=== PATIENT | female | born 1980 | race American Indian/Alaskan Native ===

== ENCOUNTER 2018-05-12 01:26 | Emergency (ER) | payer OTHER | END 2018-05-12 04:52 | disposition home or self-care (01) | LOC: ED 01:26 ==

== ENCOUNTER 2018-05-12 06:38 | Observation (INO) | payer MEDICAID, OTHER ==
--- NOTE | 2018-05-12 07:48 | ED PDOC ---
Arrival/HPI - General Chief Complaint: Medical Clearance Time Seen by Provider: 05/12/18 07:22 Historian: Patient - History of Present Illness Narrative History of Present Illness (Text): 05/12/18 07:30 38 year old homeless female, with no significant past medical history, who presents to the Emergency department complaining that she is " not being able to walk," noting symptoms have been present for only 1 day. Patient was reportedly seen and discharged last night. Patient states she is normally able to walk. Patient reportedly had x-rays that were negative last night. Patient does not have any other complaints at this time. Patient is a poor historian. Time/Duration: Other (Patient notes symptoms have been present for only 1 day) Symptom Onset: Sudden Symptom Course: Unchanged Activities at Onset: Light Past Medical History - Provider Review Nursing Documentation Reviewed: Yes - Infectious Disease Hx of Infectious Diseases: None - Psychiatric Hx Substance Use: No Family/Social History - Physician Review Nursing Documentation Reviewed: Yes Family/Social History: No Known Family HX Smoking Status: Smoker Currrent Status Unknown Hx Alcohol Use: Yes Hx Substance Use: No Allergies/Home Meds Allergies/Adverse Reactions: Allergies No Known Allergies Allergy (Verified 05/12/18 01:35) Review of Systems - Physician Review All systems were reviewed & negative as marked: Yes - Review of Systems Constitutional: Normal. absent: Fevers Neurological: Gait Changes (Patient notes she "cannot walk," but is normally able to). absent: Normal Physical Exam Vital Signs Reviewed: Yes Vital Signs Temp Pulse Resp BP Pulse Ox 05/12/18 07:03 97.8 F 88 18 131/77 99 Temperature: Afebrile Blood Pressure: Normal Pulse: Regular Respiratory Rate: Normal Appearance: Positive for: Well-Appearing, Non-Toxic, Comfortable Pain Distress: Mild Mental Status: Positive for: Alert and Oriented X 3 Medical Decision Making ED Course and Treatment: 05/12/18 07:30 Impression: 38 year old female who presents to the emergency department stating that she is "unable to walk," noting symptoms have been present for only 1 day. Differential Diagnosis included but are not limited to: ro cnetral vs spinal etiology Plan: -- Labs -- CT of head w/o contrast -- CT of lumbar spine w/o contrast -- Urinalysis -- Reassess and disposition Prior Visits: Notes and results from previous visits were reviewed. Patient presented on 05/12/18 for right leg pain. Patient was discharged in good condition, with prescriptions for Cyclobenzaprine HCl and Naprosyn. Progress Notes: 05/12/18 11:[address] Herrmann, who is custodial operations manager, and is aware of and agrees with plan. Dr. Herrmann requests MRI. 05/14/18 00:54 asa given - RAD Interpretation Narrative RAD Interpretations (Text): CT of head reviewed by radiologist, shows: Dictator : Vikash Lemons MD Report Date : 05/12/2018 10:47:34 IMPRESSION: No acute intracranial hemorrhage. Suspect minor chronic periventricular white matter ischemic changes Tiny nonspecific calcifications seen in the left temporal region of uncertain etiology. CT of lumbar spine reviewed by radiologist, shows: Dictator : Vikash Lemons MD Report Date : 05/12/2018 11:13:39 IMPRESSION: No acute fractures. Partial sacralization right-sided L5 vertebral body segment. Small amount of vacuum phenomena right SI joint Radiology Orders: 05/12/18 07:36 HEAD W/O CONTRAST [CT] Stat Transplant Registered Nurse: Radiologist - EKG Interpretation EKG Interpretation (Text): 05/12/18 EKG: Ordered, reviewed, and independently interpreted the EKG. Rate : 82 BPM Rhythm : NSR Interpretation : No ST-T wave changes. Interpreted by ED Physician: Yes Type: 12 lead EKG - Scribe Statement The provider has reviewed the documentation as recorded by the Scribe Radha Oconnell All medical record entries made by the Scribe were at my direction and pe rsonally dictated by me. I have reviewed the chart and agree that the record accurately reflects my personal performance of the history, physical exam, medical decision making, and the department course for this patient. I have also personally directed, reviewed, and agree with the discharge instructions and disposition. Disposition/Present on Arrival - Present on Arrival Any Indicators Present on Arrival: No History of DVT/PE: No History of Uncontrolled Diabetes: No Urinary Catheter: No History of Decub. Ulcer: No History Surgical Site Infection Following: None - Disposition Have Diagnosis and Disposition been Completed?: Yes Diagnosis: Lumbar radiculopathy, acute, Homeless Disposition: HOSPITALIZED Disposition Time: 15:00 Patient Problems: Current Active Problems Problem Status Onset Lumbar radiculopathy, acute Acute Condition: STABLE
[2018-05-12 08:34] LABS: BASO # 0.02 K/mm3 (0.0-2.0); BASO % 0.3 % (0.0-3.0); EOS % 0.1 % (1.5-5.0); HEMOGLOBIN 12.5 g/dL (12.0-16.0); LYMPH # 1.9 (1.2-3.4); LYMPH % 27.6 % (22.0-35.0); MEAN CELL VOLUME 82.8 fl (80.0-105.0); MEAN CORPUSCULAR HEMOGLOBIN 27.2 pg (25.0-35.0); MEAN CORPUSCULAR HGB CONC 32.9 g/dl (31.0-37.0); MEAN PLATELET VOLUME 10.6 fl (7.0-11.0); MONO # 0.3 (0.1-0.6); MONO % 3.8 % (1.0-6.0); RBC 4.59 10^6/uL (3.5-6.1); RED CELL DISTRIBUTION WIDTH 15.1 % (11.5-14.5)
[2018-05-12 08:41] LABS: INR 1.15; PARTIAL THROMBOPLASTIN TIME 35.6 Seconds (26.9-38.3)
[2018-05-12 10:02] LABS: ALB/GLOB RATIO 1.2 (1.1-1.8); ALBUMIN 4.6 g/dL (3.0-4.8); ALT/SGPT 6 U/L (7-56); AST/SGOT 37 U/L (14-36); BLOOD UREA NITROGEN 11 mg/dL (7-21); CALCIUM 9.9 mg/dL (8.4-10.5); GFR NON-AFRICAN AMERICAN > 60
[2018-05-12 10:19] LABS: CK-MB 0.8 ng/mL (0.0-3.6)
--- NOTE | 2018-05-12 10:51 | CT ---
Date of service: 05/12/2018 PROCEDURE: CT HEAD WITHOUT CONTRAST. HISTORY: Bilateral leg weakness. COMPARISON: None available. TECHNIQUE: Axial computed tomography images were obtained through the head/brain without intravenous contrast. Radiation dose: Total exam DLP = 1004.92 mGy-cm. This CT exam was performed using one or more of the following dose reduction techniques: Automated exposure control, adjustment of the mA and/or kV according to patient size, and/or use of iterative reconstruction technique. FINDINGS: HEMORRHAGE: No acute parenchymal, subarachnoid or extra-axial BRAIN: Suspect minor chronic periventricular white matter ischemic changes. There is a tiny calcifications seen the left temporal region nonspecific. VENTRICLES: No obstructive hydrocephalus. CALVARIUM: There are no acute calvarial fracture seen. PARANASAL SINUSES: Unremarkable as visualized. No significant inflammatory changes. MASTOID AIR CELLS: Unremarkable as visualized. No inflammatory changes. OTHER FINDINGS: None. IMPRESSION: No acute intracranial hemorrhage. Suspect minor chronic periventricular white matter ischemic changes Tiny nonspecific calcifications seen in the left temporal region of uncertain etiology.
--- NOTE | 2018-05-12 11:17 | CT ---
Date of service: 05/12/2018 PROCEDURE: CT Lumbar Spine without contrast HISTORY: Low back pain with difficulty ambulating. COMPARISON: No prior study available comparison TECHNIQUE: Axial computed tomography images were obtained of the lumbar spine without the use of intravenous contrast. Coronal and sagittal reformatted images were created and reviewed. Radiation dose: Total exam DLP = 441.51 mGy-cm. This CT exam was performed using one or more of the following dose reduction techniques: Automated exposure control, adjustment of the mA and/or kV according to patient size, and/or use of iterative reconstruction technique. FINDINGS: VERTEBRAE: No acute compression fractures nor retropulsed fragments. Vertebral bodies exhibit normal stature. Vertebral bodies and facets normally aligned. Disc space heights are relatively maintained. There are no disc herniations nor significant disc bulges. Minimal osteophyte formation seen along the right posterolateral L5-S1 disc space which encroaches slightly into the right exit foramen.. Partial sacralization right sided L5 vertebral body Note made of small amount of vacuum phenomena right SI joint. PARASPINAL SOFT TISSUES: Paraspinal soft tissues unremarkable OTHER FINDINGS: None IMPRESSION: No acute fractures. Partial sacralization right-sided L5 vertebral body segment. Small amount of vacuum phenomena right SI joint
[2018-05-12 14:55] LABS: PH,URINE 6.5 (4.7-8.0); URINE BILIRUBIN NEGATIVE (NEGATIVE); URINE BLOOD NEGATIVE (NEGATIVE); URINE GLUCOSE (UA) NEGATIVE (NEGATIVE); URINE LEUKOCYTE ESTERASE NEGATIVE Leu/uL (NEGATIVE); URINE PROTEIN NEGATIVE mg/dL (<30 mg/dL); URINE UROBILINOGEN 0.2 E.U./dL (<1 E.U./dL)
[2018-05-12 15:00] LABS: URINE APPEARANCE CLEAR (CLEAR); URINE COLOR LIGHT YELLOW (YELLOW)
[2018-05-12 15:11] LABS: BARBITURATES, UR NEGATIVE (NEGATIVE); BENZODIAZEPINES, UR NEGATIVE (NEGATIVE); OPIATES, UR NEGATIVE (NEGATIVE); PHENCYCLIDINE, UR NEGATIVE (NEGATIVE)
[2018-05-12 16:11] VITALS: BMI 26.6
[2018-05-12] MEDS ORDERED: Influenza Vaccine 60 mcg/0.5 mL SYR (4YR UP) IM ONE (16:12)
[2018-05-12] MEDS ORDERED: Pneumococcal 23-Valent Vaccine IM ONE (16:12)
[2018-05-12 16:48] LABS: BARBITURATES, UR NEGATIVE (NEGATIVE); BENZODIAZEPINES, UR NEGATIVE (NEGATIVE); OPIATES, UR NEGATIVE (NEGATIVE); PHENCYCLIDINE, UR NEGATIVE (NEGATIVE)
--- NOTE | 2018-05-12 17:12 | CP.PCM.HP ---
<Antonio Garcia - Last Filed: 05/12/18 17:30> History of Present Illness - History of Present Illness History of Present Illness: PGY-1 Medicine H&P for Dr. Aguilar CC: Right leg weakness HPI: Patient is a 38 year old homeless female from [facility] with no past medical history presenting with right leg weakness that started one day ago. She states that she was standing on the street when suddenly her right leg started to feel weak. She called the ambulance and was brought to the ED. She also admits to having thigh pain that is localized to her lateral right thigh. She describes the pain as burning and 8/10 in severity. She denies taking any medication for the pain and resting makes the pain better. Patient states that she travelled to [facility] from December 2017 until April 2018. She denies falling or trauma to her legs. She further denies any headaches, dizziness, changes in vision, shortness of breath, chest pain, abdominal pain, nausea, vomiting, diarrhea, or urinary symptoms. 12 point ROS reviewed and negative except mentioned in HPI. PMHx: denies PSHx: denies Allergies: NKDA Family Hx: denies Social Hx: denies tobacco, alcohol, or drug use. Patient is unemployed and ho meless at the moment. She states that she has 2 children that live with their father. Medications: denies PMD: none Present on Admission - Present on Admission Any Indicators Present on Admission: No History of DVT/PE: No History of Uncontrolled Diabetes: No Urinary Catheter: No Decubitus Ulcer Present: No Past Patient History - Infectious Disease Hx of Infectious Diseases: None - Past Social History Smoking Status: Never Smoked - CARDIAC Hx Peripheral Edema: Yes (+1 pitting r ft) Hx Peripheral Vascular Disease: Yes (feet cold to touch) - PULMONARY Hx Respiratory Disorders: No - NEUROLOGICAL Hx Neurological Disorder: Yes (feet cold to touch) - HEENT Hx HEENT Problems: No - RENAL Hx Chronic Kidney Disease: No - ENDOCRINE/METABOLIC Hx Endocrine Disorders: No - HEMATOLOGICAL/ONCOLOGICAL Hx Blood Disorders: No - INTEGUMENTARY Hx Dermatological Problems: Yes Other/Comment: r foot cold to touch +1 pitting edema, dry skin to foot/heal dry patch of skin to instep, 4th toe 3 small dry red wounds painful"sometimes", left foot cold to touch dry skin to foot/heal - MUSCULOSKELETAL/RHEUMATOLOGICAL Hx Falls: No - GASTROINTESTINAL Hx Gastrointestinal Disorders: No - GENITOURINARY/GYNECOLOGICAL Hx Genitourinary Disorders: No - PSYCHIATRIC Hx Substance Use: No (denies) - SURGICAL HISTORY Hx Surgeries: No Meds Allergies/Adverse Reactions: Allergies Allergy/AdvReac Type Severity Reaction Status Date / Time No Known Allergies Allergy Verified 05/12/18 01:35 Physical Exam - Constitutional Appears: Well, Non-toxic, No Acute Distress - Head Exam Head Exam: ATRAUMATIC, NORMAL INSPECTION - Eye Exam Eye Exam: EOMI, Normal appearance Pupil Exam: NORMAL ACCOMODATION, PERRL - ENT Exam ENT Exam: Mucous Membranes Moist - Neck Exam Neck exam: Positive for: Normal Inspection - Respiratory Exam Respiratory Exam: Clear to Auscultation Bilateral. absent: Rales, Rhonchi, Wheezes, Respiratory Distress - Cardiovascular Exam Cardiovascular Exam: REGULAR RHYTHM, +S1, +S2. absent: Gallop, Rubs, Systolic Murmur - GI/Abdominal Exam GI & Abdominal Exam: Normal Bowel Sounds, Soft. absent: Tenderness - Extremities Exam Extremities exam: Negative for: calf tenderness, pedal edema Additional comments: Tender on palpation on the right lateral thigh. No signs of cellulitis or infection. There is an ulcer on the right 3rd toe. No signs of infection or foul odor noted. - Back Exam Back exam: absent: CVA tenderness (L), CVA tenderness (R) - Neurological Exam Neurological exam: Alert, CN II-XII Intact, Oriented x3 Additional comments: Sensations are intact on all extremities. No drift noted on bilateral lower extremities. - Expanded Neurological Exam Expanded Neuro motor strength exam: Left Upper Extremity: 5, Right Upper Extremity: 5, Left Lower Extremity: 5, Right Lower Extremity: 4 - Psychiatric Exam Psychiatric exam: Normal Affect, Normal Mood - Skin Skin Exam: Dry, Normal Color, Warm Results - Vital Signs Recent Vital Signs: Last Vital Signs Temp 98.4 F 05/12/18 12:36 Pulse 86 05/12/18 14:30 Resp 20 05/12/18 15:41 BP 110/68 05/12/18 14:30 Pulse Ox 99 05/12/18 14:30 - Labs Result Diagrams: 05/12/18 08:00 05/12/18 09:30 Labs: Laboratory Results - last 24 hr 05/12/18 05/12/18 05/12/18 08:00 08:00 09:30 WBC 7.0 RBC 4.59 Hgb 12.5 Hct 38.0 MCV 82.8 MCH 27.2 MCHC 32.9 RDW 15.1 H Plt Count 360 MPV 10.6 Neut % (Auto) 68.2 H Lymph % (Auto) 27.6 [place] % (Auto) 3.8 Eos % (Auto) 0.1 L Baso % (Auto) 0.3 Lymph # (Auto) 1.9 [place] # (Auto) 0.3 Eos # (Auto) 0.0 Baso # (Auto) 0.02 Absolute Neuts (auto) 4.80 PT 13.0 H INR 1.15 APTT 35.6 Sodium 140 Potassium 4.5 Chloride 104 Carbon Dioxide 24 Anion Gap 16 BUN 11 Creatinine 0.7 Est GFR ( Amer) > 60 Est GFR (Non-Af Amer) > 60 Random Glucose 86 Calcium 9.9 Total Bilirubin 0.7 AST 37 H ALT 6 L Alkaline Phosphatase 66 Total Creatine Kinase 304 H CK-MB (CK-2) 0.8 CK-MB (CK-2) % Cancelled Total Protein 8.4 H Albumin 4.6 Globulin 3.8 Albumin/Globulin Ratio 1.2 Urine Color Urine Appearance Urine pH Ur Specific [place] Urine Protein Urine Glucose (UA) Urine Ketones Urine Blood Urine Nitrate Urine Bilirubin Urine Urobilinogen Ur Leukocyte Esterase Urine Opiates Screen Urine Methadone Screen Ur Barbiturates Screen Ur Phencyclidine Scrn Ur Amphetamines Screen U Benzodiazepines Scrn U Oth Cocaine Metabols U Cannabinoids Screen 05/12/18 05/12/18 05/12/18 14:35 14:35 16:14 WBC RBC Hgb Hct MCV MCH MCHC RDW Plt Count MPV Neut % (Auto) Lymph % (Auto) [place] % (Auto) Eos % (Auto) Baso % (Auto) Lymph # (Auto) [place] # (Auto) Eos # (Auto) Baso # (Auto) Absolute Neuts (auto) PT INR APTT Sodium Potassium Chloride Carbon Dioxide Anion Gap BUN Creatinine Est GFR ( Amer) Est GFR (Non-Af Amer) Random Glucose Calcium Total Bilirubin AST ALT Alkaline Phosphatase Total Creatine Kinase CK-MB (CK-2) CK-MB (CK-2) % Total Protein Albumin Globulin Albumin/Globulin Ratio Urine Color Light yellow Urine Appearance Clear Urine pH 6.5 Ur Specific [place] 1.010 Urine Protein Negative Urine Glucose (UA) Negative Urine Ketones 40 H Urine Blood Negative Urine Nitrate Negative Urine Bilirubin Negative Urine Urobilinogen 0.2 Ur Leukocyte Esterase Negative Urine Opiates Screen Negative Negative Urine Methadone Screen Negative Negative Ur Barbiturates Screen Negative Negative Ur Phencyclidine Scrn Negative Negative Ur Amphetamines Screen Negative Negative U Benzodiazepines Scrn Negative Negative U Oth Cocaine Metabols Negative Negative U Cannabinoids Screen Negative Negative Assessment & Plan - Assessment and Plan (Free Text) Assessment: Patient is a 38 year old female with no past medical history admitted for right leg weakness. Plan: Right leg weakness - Head CT: No acute intracranial hemorrhage. Suspect minor chronic periventricular white matter ischemic changes. - Lumbar spine CT: No acute fractures. Partial sacralization right-sided L5 vertebral body segment. - Brain MRI w/ and w/o contrast: pending - Neurology consulted, Dr. Herrmann - HbA1C, Lipid panel, TSH: pending - CK: 304 - UDS: negative - UA: negative Right foot ulcer: - Podiatry consulted, Dr. Mclaughlin - Wound care nurse consulted - Patient is afebrile and has no leukocytosis - Tylenol PRN for pain - HbA1c: pending Homelessness - ship worker consulted Prophylaxis: - Lovenox 40mg SC QD Patient seen and case discussed with attending, Dr. Lauren Garcia, PGY-1 <Papo Aguilar - Last Filed: 05/13/18 17:24> Results - Vital Signs Recent Vital Signs: Last Vital Signs Temp 98.4 F 05/13/18 15:30 Pulse 76 05/13/18 15:30 Resp 20 05/13/18 15:30 BP 104/69 05/13/18 15:30 Pulse Ox 99 05/13/18 15:30 - Labs Result Diagrams: 05/13/18 06:00 05/13/18 06:00 Labs: Laboratory Results - last 24 hr 05/13/18 05/13/18 05/13/18 06:00 06:00 06:00 WBC 5.7 RBC 4.39 Hgb 11.8 L Hct 36.5 MCV 83.1 MCH 26.9 MCHC 32.3 RDW 15.0 H Plt Count 312 MPV 10.1 Neut % (Auto) 59.2 Lymph % (Auto) 34.2 [place] % (Auto) 5.3 Eos % (Auto) 0.9 L Baso % (Auto) 0.4 Lymph # (Auto) 2.0 [place] # (Auto) 0.3 Eos # (Auto) 0.1 Baso # (Auto) 0.02 Absolute Neuts (auto) 3.39 Sodium 138 Potassium 4.3 Chloride 105 Carbon Dioxide 25 Anion Gap 13 BUN 11 Creatinine 0.8 Est GFR ( Amer) > 60 Est GFR (Non-Af Amer) > 60 Random Glucose 89 Hemoglobin A1c 5.6 Calcium 9.8 Total Bilirubin 0.8 AST 25 ALT < 6 L Alkaline Phosphatase 54 Total Protein 7.9 Albumin 4.2 Globulin 3.7 Albumin/Globulin Ratio 1.1 Triglycerides 57 Cholesterol 182 LDL Cholesterol Direct 104 HDL Cholesterol 45 TSH 3rd Generation 05/13/18 06:00 WBC RBC Hgb Hct MCV MCH MCHC RDW Plt Count MPV Neut % (Auto) Lymph % (Auto) [place] % (Auto) Eos % (Auto) Baso % (Auto) Lymph # (Auto) [place] # (Auto) Eos # (Auto) Baso # (Auto) Absolute Neuts (auto) Sodium Potassium Chloride Carbon Dioxide Anion Gap BUN Creatinine Est GFR ( Amer) Est GFR (Non-Af Amer) Random Glucose Hemoglobin A1c Calcium Total Bilirubin AST ALT Alkaline Phosphatase Total Protein Albumin Globulin Albumin/Globulin Ratio Triglycerides Cholesterol LDL Cholesterol Direct HDL Cholesterol TSH 3rd Generation 1.00 Attending/Attestation - Attestation I have personally seen and examined this patient.: Yes I have fully participated in the care of the patient.: Yes I have reviewed all pertinent clinical information: Yes Notes (Text): 38 y/o F with no PMH presented with RLE weakness with associated right hip pain. No other focal neuro deficit on exam CT head negative CT of lumbar sacral spine showed some degenerative disc disease Will get MRI of the brain, neuro on board Podiatry consulted for right foot ulcer PT eval
--- NOTE | 2018-05-12 17:18 | CARD ---
APPROVED REPORT Date of service: 05/12/2018 EKG Measurement Heart [id number] MI [id number] [id number] <Conclusion> Normal sinus rhythm with sinus arrhythmia Normal ECG
[2018-05-12] MEDS ORDERED: Gadodiamide 287 MG/ML VIAL (15ML) IV ONE (18:30)
[2018-05-13 06:47] LABS: BASO # 0.02 K/mm3 (0.0-2.0); BASO % 0.4 % (0.0-3.0); EOS # 0.1 (0.0-0.7); EOS % 0.9 % (1.5-5.0); HEMOGLOBIN 11.8 g/dL (12.0-16.0); LYMPH % 34.2 % (22.0-35.0); MEAN CELL VOLUME 83.1 fl (80.0-105.0); MEAN CORPUSCULAR HEMOGLOBIN 26.9 pg (25.0-35.0); MEAN CORPUSCULAR HGB CONC 32.3 g/dl (31.0-37.0); MEAN PLATELET VOLUME 10.1 fl (7.0-11.0); MONO # 0.3 (0.1-0.6); MONO % 5.3 % (1.0-6.0); RBC 4.39 10^6/uL (3.5-6.1); WHITE BLOOD COUNT 5.7 10^3/uL (4.5-11.0)
[2018-05-13 06:56] LABS: ALB/GLOB RATIO 1.1 (1.1-1.8); ALBUMIN 4.2 g/dL (3.0-4.8); ALT/SGPT < 6 U/L (7-56); AST/SGOT 25 U/L (14-36); BLOOD UREA NITROGEN 11 mg/dL (7-21); CALCIUM 9.8 mg/dL (8.4-10.5); GFR NON-AFRICAN AMERICAN > 60; HDL CHOLESTEROL 45 mg/dL (29-60)
[2018-05-13 07:02] LABS: LDL CHOLESTEROL 104 mg/dL (0-129)
--- NOTE | 2018-05-13 07:07 | CP.PCM.PN ---
<Antonio Garcia - Last Filed: 05/13/18 16:15> Subjective - Date & Time of Evaluation Date of Evaluation: 05/13/18 Time of Evaluation: 07:07 - Subjective Subjective: PGY-1 Medicine progress note for Dr. Aguilar Patient seen and examined at bedside. No acute events overnight. She states that her right leg weakness has improved since yesterday. She denies fevers, chills, shortness of breath, chest pain, or any other complaints at this time. Objective - Vital Signs/Intake and Output Vital Signs (last 24 hours): Temp Pulse Resp BP Pulse Ox 97.9 F 80 20 109/66 99 05/13/18 00:00 05/13/18 06:00 05/13/18 00:00 05/13/18 00:00 05/13/18 00:00 Intake and Output: 05/13/18 05/13/18 06:59 18:59 Intake Total 240 Balance 240 - Medications Medications: Current Medications Acetaminophen (Tylenol 325mg Tab) 650 mg PO Q6H PRN PRN Reason: Fever >100.4 F Enoxaparin Sodium (Lovenox) 40 mg SC DAILY JAMES; Protocol - Labs Labs: 05/13/18 06:00 05/13/18 06:00 PT 13.0 SECONDS (9.4-12.5) H 05/12/18 08:00 INR 1.15 05/12/18 08:00 APTT 35.6 Seconds (26.9-38.3) 05/12/18 08:00 - Additional Findings Additional findings: - Constitutional Appears: Well, Non-toxic, No Acute Distress - Head Exam Head Exam: ATRAUMATIC, NORMAL INSPECTION - Eye Exam Eye Exam: EOMI, Normal appearance Pupil Exam: NORMAL ACCOMODATION, PERRL - ENT Exam ENT Exam: Mucous Membranes Moist - Neck Exam Neck exam: Positive for: Normal Inspection - Respiratory Exam Respiratory Exam: Clear to Auscultation Bilateral. absent: Rales, Rhonchi, Wheezes, Respiratory Distress - Cardiovascular Exam Cardiovascular Exam: REGULAR RHYTHM, +S1, +S2. absent: Gallop, Rubs, Systolic Murmur - GI/Abdominal Exam GI & Abdominal Exam: Normal Bowel Sounds, Soft. absent: Tenderness - Extremities Exam Extremities exam: Negative for: calf tenderness, pedal edema Additional comments: There is an ulcer on the right 3rd toe. No signs of infection or foul odor noted. Dressing C/D/I. - Back Exam Back exam: absent: CVA tenderness (L), CVA tenderness (R) - Neurological Exam Neurological exam: Alert, CN II-XII Intact, Oriented x3 Additional comments: Sensations are intact on all extremities. No drift noted on bilateral lower extremities. - Expanded Neurological Exam Expanded Neuro motor strength exam: Left Upper Extremity: 5, Right Upper Extremity: 5, Left Lower Extremity: 5, Right Lower Extremity: 5 - Psychiatric Exam Psychiatric exam: Normal Affect, Normal Mood - Skin Skin Exam: Dry, Normal Color, Warm Assessment and Plan - Assessment and Plan (Free Text) Assessment: Patient is a 38 year old female with no past medical history admitted for right leg weakness. Plan: Right leg weakness - Head CT: No acute intracranial hemorrhage. Suspect minor chronic periventricular white matter ischemic changes. - Lumbar spine CT: No acute fractures. Partial sacralization right-sided L5 vertebral body segment. - Brain MRI w/ and w/o contrast: No acute abnormality - Thoracic spine MRI: pending - Neurology consulted, Dr. Herrmann - HbA1C, Lipid panel, TSH: WNL - UDS: negative - UA: negative Right foot ulcer: - Podiatry consulted, Dr. Mclaughlin - Right foot X-ray: no acute findings - Wound culture: pending - Wound care nurse consulted - Patient is afebrile and has no leukocytosis - Tylenol PRN for pain - HbA1c: 5.6 Homelessness - daycare worker consulted Prophylaxis: - Lovenox 40mg SC QD Patient seen and case discussed with attending, Dr. Lauren Garcia, PGY-1 <Papo Aguilar - Last Filed: 05/13/18 17:21> Objective - Vital Signs/Intake and Output Vital Signs (last 24 hours): Temp Pulse Resp BP Pulse Ox 98.4 F 76 20 104/69 99 05/13/18 15:30 05/13/18 15:30 05/13/18 15:30 05/13/18 15:30 05/13/18 15:30 Intake and Output: 05/13/18 05/13/18 06:59 18:59 Intake Total 240 Balance 240 - Medications Medications: Current Medications Acetaminophen (Tylenol 325mg Tab) 650 mg PO Q6H PRN PRN Reason: Fever >100.4 F Last Admin: 05/13/18 13:27 Dose: 650 mg Enoxaparin Sodium (Lovenox) 40 mg SC DAILY [facility]; Protocol Last Admin: 05/13/18 10:28 Dose: 40 mg Lactic Acid (Lac-Hydrin 12% Lotion (225 G)) 0 gm EXT BID JAMES Mupirocin (Bactroban Ointment) 1 gm TOP BID JAMES - Labs Labs: 05/13/18 06:00 05/13/18 06:00 PT 13.0 SECONDS (9.4-12.5) H 05/12/18 08:00 INR 1.15 05/12/18 08:00 APTT 35.6 Seconds (26.9-38.3) 05/12/18 08:00 Attending/Attestation - Attestation I have personally seen and examined this patient.: Yes I have fully participated in the care of the patient.: Yes I have reviewed all pertinent clinical information, including history, physical exam and plan: Yes Notes (Text): 38 y/o F with no PMH presented with RLE weakness with associated right hip pain. No other focal neuro deficit on exam CT head negative MRI of brain showed no acute pathology as per neurology CT of lumbar sacral spine showed some degenerative disc disease Symptoms improved today Neuro recommending MRI of the lumbosacral spine Podiatry evaluated the right foot ulcer, will f/u recommendations
--- NOTE | 2018-05-13 10:27 | CP.PCM.CON ---
History of Present Illness - History of Present Illness History of Present Illness: Neurology Consultation Note: Consult requested by Dr. Aguilar Ms. Rosales is a 38-year-old woman from [facility], with no significant past medical history, who presented to the ED stating that she was standing on the street when suddenly her right leg started to feel weak. The weakness is associated with thigh pain that is localized to her lateral right thigh. She describes the pain as burning and 8/[address] Lum[address] spine [address] showed partial sacralization of L5 vertebra on the right. MRI of the brain was normal. Today, the patient states that the pain and weakness is gone and she is able to ambulate normally. According to the patient, she has an infection of her foot on the right as well, which was cleaned by a physician and bandaged. Review of Systems - Constitutional Constitutional: As Per HPI - EENT Eyes: absent: As Per HPI, Blind Spots, Blurred Vision, Change in Vision, Decreased Night Vision, Diplopia, Discharge, Dry Eye, Exophthalmos, Floaters, Irritation, Itchy Eyes, Loss of Peripheral Vision, Pain, Photophobia, Requires Corrective Lenses, Sees Flashes, Spots in Vision, Tunnel Vision, Other Visual Disturbances, Loss of Vision, Other Ears: absent: As Per HPI, Decreased Hearing, Ear Discharge, Ear Pain, Tinnitus, Abnormal Hearing, Disequilibrium, Dizziness, Other Nose/Mouth/Throat: absent: As Per HPI, Epistaxis, Nasal Congestion, Nasal Discharge, Nasal Obstruction, Nasal Trauma, Nose Pain, Post Nasal Drip, Sinus Pain, Sinus Pressure, Bleeding Gums, Change in Voice, Dental Pain, Dry Mouth, Dysphagia, Halitosis, Hoarsness, Lip Swelling, Mouth Lesions, Mouth Pain, Odynophagia, Sore Throat, Throat Swelling, Tongue Swelling, Facial Pain, Neck Pain, Neck Mass, Other - Cardiovascular Cardiovascular: absent: As Per HPI, Acrocyanosis, Chest Pain, Chest Pain at Rest, Chest Pain with Activity, Claudication, Diaphoresis, Dyspnea, Dyspnea on Exertion, Edema, Irregular Heart Rhythm, Pain Radiating to Arm/Neck/Jaw, Leg Edema, Leg Ulcers, Lightheadedness, Orthopnea, Palpitations, Paroxysmal Nocturnal Dyspnea, Pedal Edema, Radiating Pain, Rapid Heart Rate, Slow Heart Rate, Syncope, Other - Respiratory Respiratory: absent: As Per HPI, Cough, Dyspnea, Hemoptysis, Dyspnea on E xertion, Wheezing, Snoring, Stridor, Pain on Inspiration, Chest Congestion, Excessive Mucous Production, Change in Mucous Color, Pain with Coughing, Other - Gastrointestinal Gastrointestinal: absent: As Per HPI, Abdominal Pain, Belching, Bloating, Change in Bowel Habits, Change in Stool Character, Coffee Ground Emesis, Constipation, Cramping, Diarrhea, Dyspepsia, Dysphagia, Early Satiety, Excessive Flatus, Fecal Incontinence, Heartburn, Hematemesis, Hematochezia, Loose Stools, Melena, Nausea, Odynophagia, Temesmus, Vomiting, Other - Musculoskeletal Musculoskeletal: absent: As Per HPI, Abnormal Gait, Arthralgias, Atrophy, Back Pain, Deformity, Joint Swelling, Limited Range of Motion, Loss of Height, Muscle Cramps, Muscle Weakness, Myalgias, Neck Pain, Numbness, Radiating Pain into Limb, Stiffness, Tingling, Other - Integumentary Integumentary: absent: As Per HPI, Acne, Alopecia, Bleeding Lesions, Change in Hair, Change in Nails, Change in Pigmentation, Changing Lesions, Dry Skin, Erythema, Furuncle, Hirsutism, Lesions, New Lesions, Non-Healing Lesions, Photosensitivity, Pruritus, Rash, Skin Pain, Skin Ulcer, Sores, Striae, Swelling, Unusual Bruising, Wounds, Jaundice, Other - Neurological Neurological: As Per HPI - Psychiatric Psychiatric: absent: As Per HPI, Abnormal Sleep Pattern, Anhedonia, Anxiety, Auditory Hallucinations, Behavioral Changes, Change in Appetite, Change in Libido, Confusion, Depression, Difficulty Concentrating, Hallucinations, Homicidal Ideation, Hopelessness, Irritability, Memory Loss, Mood Swings, Panic Attacks, Paranoia, Suicidal Ideation, Visual Hallucinations, Tactile Hallucinations, Other - Endocrine Endocrine: absent: As Per HPI, Change in Body Appearance, Change in Libido, Cold Intolorance, Deepening of Voice, Excessive Sweating, Fatigue, Flushing, Heat Intolorance, Increase in Ring/Shoe/Hat Size, Palpitations, Polydipsia, Polyphagia, Polyuria, Other - Hematologic/Lymphatic Hematologic: absent: As Per HPI, Easy Bleeding, Easy Bruising, Lymphadenopathy, Other Past Patient History - Infectious Disease Hx of Infectious Diseases: None - Past Social History Smoking Status: Never Smoked - CARDIAC Hx Peripheral Edema: Yes (+1 pitting r ft) Hx Peripheral Vascular Disease: Yes (feet cold to touch) - PULMONARY Hx Respiratory Disorders: No - NEUROLOGICAL Hx Neurological Disorder: Yes (feet cold to touch) - HEENT Hx HEENT Problems: No - RENAL Hx Chronic Kidney Disease: No - ENDOCRINE/METABOLIC Hx Endocrine Disorders: No - HEMATOLOGICAL/ONCOLOGICAL Hx Blood Disorders: No - INTEGUMENTARY Hx Dermatological Problems: Yes Other/Comment: r foot cold to touch +1 pitting edema, dry skin to foot/heal dry patch of skin to instep, 4th toe 3 small dry red wounds painful"sometimes", left foot cold to touch dry skin to foot/heal - MUSCULOSKELETAL/RHEUMATOLOGICAL Hx Falls: No - GASTROINTESTINAL Hx Gastrointestinal Disorders: No - GENITOURINARY/GYNECOLOGICAL Hx Genitourinary Disorders: No - PSYCHIATRIC Hx Substance Use: No (denies) - SURGICAL HISTORY Hx Surgeries: No Meds Allergies/Adverse Reactions: Allergies Allergy/AdvReac Type Severity Reaction Status Date / Time No Known Allergies Allergy Verified 05/12/18 01:35 - Medications Medications: Current Medications Acetaminophen (Tylenol 325mg Tab) 650 mg PO Q6H PRN PRN Reason: Fever >100.4 F Enoxaparin Sodium (Lovenox) 40 mg SC DAILY [facility]; Protocol Physical Exam - Constitutional Appears: Well - Head Exam Head Exam: ATRAUMATIC, NORMAL INSPECTION, NORMOCEPHALIC - Eye Exam Eye Exam: EOMI, Normal appearance, PERRL Pupil Exam: NORMAL ACCOMODATION, PERRL - ENT Exam ENT Exam: Mucous Membranes Moist, Normal Exam - Neck Exam Neck exam: Positive for: Normal Inspection - Respiratory Exam Respiratory Exam: Clear to Auscultation Bilateral, NORMAL BREATHING PATTERN - Cardiovascular Exam Cardiovascular Exam: REGULAR RHYTHM, +S1, +S2 - GI/Abdominal Exam GI & Abdominal Exam: Normal Bowel Sounds, Soft. absent: Tenderness - Extremities Exam Extremities exam: Positive for: normal inspection - Back Exam Back exam: NORMAL INSPECTION - Neurological Exam Neurological exam: Alert, CN II-XII Intact, Normal Gait, Oriented x3, Reflexes Normal Additional comments: No focal motor or sensory deficits noted. - Psychiatric Exam Psychiatric exam: Normal Affect, Normal Mood - Skin Skin Exam: Dry, Intact, Normal Color, Warm Results - Vital Signs Recent Vital Signs: Last Vital Signs Temp 98.3 F 05/13/18 08:35 Pulse 89 05/13/18 08:35 Resp 20 05/13/18 08:35 BP 113/68 05/13/18 08:35 Pulse Ox 98 05/13/18 08:35 - Labs Result Diagrams: 05/13/18 06:00 05/13/18 06:00 Labs: Laboratory Results - last 24 hr 05/12/18 05/12/18 05/12/18 09:30 14:35 14:35 WBC RBC Hgb Hct MCV MCH MCHC RDW Plt Count MPV Neut % (Auto) Lymph % (Auto) [place] % (Auto) Eos % (Auto) Baso % (Auto) Lymph # (Auto) [place] # (Auto) Eos # (Auto) Baso # (Auto) Absolute Neuts (auto) Sodium Potassium Chloride Carbon Dioxide Anion Gap BUN Creatinine Est GFR ( Amer) Est GFR (Non-Af Amer) Random Glucose Calcium Total Bilirubin AST ALT Alkaline Phosphatase CK-MB (CK-2) 0.8 CK-MB (CK-2) % Cancelled Total Protein Albumin Globulin Albumin/Globulin Ratio Triglycerides Cholesterol LDL Cholesterol Direct HDL Cholesterol TSH 3rd Generation Urine Color Light yellow Urine Appearance Clear Urine pH 6.5 Ur Specific [place] 1.010 Urine Protein Negative Urine Glucose (UA) Negative Urine Ketones 40 H Urine Blood Negative Urine Nitrate Negative Urine Bilirubin Negative Urine Urobilinogen 0.2 Ur Leukocyte Esterase Negative Urine Opiates Screen Negative Urine Methadone Screen Negative Ur Barbiturates Screen Negative Ur Phencyclidine Scrn Negative Ur Amphetamines Screen Negative U Benzodiazepines Scrn Negative U Oth Cocaine Metabols Negative U Cannabinoids Screen Negative 05/12/18 05/13/18 05/13/18 16:14 06:00 06:00 WBC 5.7 RBC 4.39 Hgb 11.8 L Hct 36.5 MCV 83.1 MCH 26.9 MCHC 32.3 RDW 15.0 H Plt Count 312 MPV 10.1 Neut % (Auto) 59.2 Lymph % (Auto) 34.2 [place] % (Auto) 5.3 Eos % (Auto) 0.9 L Baso % (Auto) 0.4 Lymph # (Auto) 2.0 [place] # (Auto) 0.3 Eos # (Auto) 0.1 Baso # (Auto) 0.02 Absolute Neuts (auto) 3.39 Sodium 138 Potassium 4.3 Chloride 105 Carbon Dioxide 25 Anion Gap 13 BUN 11 Creatinine 0.8 Est GFR ( Amer) > 60 Est GFR (Non-Af Amer) > 60 Random Glucose 89 Calcium 9.8 Total Bilirubin 0.8 AST 25 ALT < 6 L Alkaline Phosphatase 54 CK-MB (CK-2) CK-MB (CK-2) % Total Protein 7.9 Albumin 4.2 Globulin 3.7 Albumin/Globulin Ratio 1.1 Triglycerides 57 Cholesterol 182 LDL Cholesterol Direct 104 HDL Cholesterol 45 TSH 3rd Generation Urine Color Urine Appearance Urine pH Ur Specific [place] Urine Protein Urine Glucose (UA) Urine Ketones Urine Blood Urine Nitrate Urine Bilirubin Urine Urobilinogen Ur Leukocyte Esterase Urine Opiates Screen Negative Urine Methadone Screen Negative Ur Barbiturates Screen Negative Ur Phencyclidine Scrn Negative Ur Amphetamines Screen Negative U Benzodiazepines Scrn Negative U Oth Cocaine Metabols Negative U Cannabinoids Screen Negative 05/13/18 06:00 WBC RBC Hgb Hct MCV MCH MCHC RDW Plt Count MPV Neut % (Auto) Lymph % (Auto) [place] % (Auto) Eos % (Auto) Baso % (Auto) Lymph # (Auto) [place] # (Auto) Eos # (Auto) Baso # (Auto) Absolute Neuts (auto) Sodium Potassium Chloride Carbon Dioxide Anion Gap BUN Creatinine Est GFR ( Amer) Est GFR (Non-Af Amer) Random Glucose Calcium Total Bilirubin AST ALT Alkaline Phosphatase CK-MB (CK-2) CK-MB (CK-2) % Total Protein Albumin Globulin Albumin/Globulin Ratio Triglycerides Cholesterol LDL Cholesterol Direct HDL Cholesterol TSH 3rd Generation 1.00 Urine Color Urine Appearance Urine pH Ur Specific [place] Urine Protein Urine Glucose (UA) Urine Ketones Urine Blood Urine Nitrate Urine Bilirubin Urine Urobilinogen Ur Leukocyte Esterase Urine Opiates Screen Urine Methadone Screen Ur Barbiturates Screen Ur Phencyclidine Scrn Ur Amphetamines Screen U Benzodiazepines Scrn U Oth Cocaine Metabols U Cannabinoids Screen Assessment & Plan (1) Lumbar radiculopathy, acute Assessment and Plan: I recommend further evaluation with an MRI of the lumbar and thoracic spine. If it returns, or persists, treat pain with neurontin 300 mg TID. Thank you for this consultation. Status: Acute
[2018-05-13] MEDS: Enoxaparin 40 mg Syringe SC SCH (10:28)
--- NOTE | 2018-05-13 10:58 | CP.PCM.CON ---
<Alva Haskinser - Last Filed: 05/13/18 10:49> History of Present Illness - History of Present Illness History of Present Illness: Podiatry consult note for Dr. Mclaughlin: 38 year old homeless female from [facility] with no past medical history seen and evaluated at the bedside for right foot ulcerations and pain. She states that she just came back from [facility]. She states that she started to note ulcerations of her right 2nd toe a month ago. She states that the ulcer is painful. 5/10 on VAS scale. Patient states that the ulcers are not healing. She states that she used to wear open shoes in [facility]. Patient also complains of pain in the lateral side of her right ankle 3/10 on VAS scale. Increases with moving her ankle. She denies falling or trauma to her legs. She further denies any recent headaches, dizziness, changes in vision, shortness of breath, chest pain, abdominal pain, nausea, vomiting, diarrhea, or urinary symptoms. PMHx: Denies PSHx: Denies Allergies: NKDA Family Hx: Denies Social Hx: Denies tobacco, alcohol, or illicit drug use. Review of Systems - Review of Systems Review of Systems: As per HPI - Constitutional Constitutional: As Per HPI Past Patient History - Infectious Disease Hx of Infectious Diseases: None - Past Social History Smoking Status: Never Smoked - CARDIAC Hx Peripheral Edema: Yes (+1 pitting r ft) Hx Peripheral Vascular Disease: Yes (feet cold to touch) - PULMONARY Hx Respiratory Disorders: No - NEUROLOGICAL Hx Neurological Disorder: Yes (feet cold to touch) - HEENT Hx HEENT Problems: No - RENAL Hx Chronic Kidney Disease: No - ENDOCRINE/METABOLIC Hx Endocrine Disorders: No - HEMATOLOGICAL/ONCOLOGICAL Hx Blood Disorders: No - INTEGUMENTARY Hx Dermatological Problems: Yes Other/Comment: r foot cold to touch +1 pitting edema, dry skin to foot/heal dry patch of skin to instep, 4th toe 3 small dry red wounds painful"sometimes", left foot cold to touch dry skin to foot/heal - MUSCULOSKELETAL/RHEUMATOLOGICAL Hx Falls: No - GASTROINTESTINAL Hx Gastrointestinal Disorders: No - GENITOURINARY/GYNECOLOGICAL Hx Genitourinary Disorders: No - PSYCHIATRIC Hx Substance Use: No (denies) - SURGICAL HISTORY Hx Surgeries: No Meds Allergies/Adverse Reactions: Allergies Allergy/AdvReac Type Severity Reaction Status Date / Time No Known Allergies Allergy Verified 05/12/18 01:35 - Medications Medications: Current Medications Acetaminophen (Tylenol 325mg Tab) 650 mg PO Q6H PRN PRN Reason: Fever >100.4 F Enoxaparin Sodium (Lovenox) 40 mg SC DAILY [facility]; Protocol Last Admin: 05/13/18 10:28 Dose: 40 mg Mupirocin (Bactroban Ointment) 1 gm TOP BID [facility] Physical Exam - Constitutional Appears: Well, Non-toxic, No Acute Distress - Head Exam Head Exam: ATRAUMATIC, NORMOCEPHALIC - Extremities Exam Additional comments: B/L lower extremity focused exam: Vascular: DP/PT 2/4 b/l, Cap refill < 3 seconds to all digits, Temp gradient warm to cool from proximal to distal b/l, no edema appreciated b/l. Neuro: Gross and protective sensation are intact. Derm: 2 small superfcial ulcerations noted on the dorsunm of the right 2nd toe the proximal one is 0.4 cm X 0.3 cm X 0.1 cm. Minimal serous drainage. No malodor, No tracking, undermining or probe to bone. The distal one is 0.6 cm X 0.5 cm X 0.1 cm. No drainage. No malodor, No tracking, undermining or probe to bone . No clinical signs of active bacterial infection. Inter-digital macerations noted in the right 1st, 2nd and 3rd interspaces. hyperkeratotic lesions and skin breakage noted in the lateral side of the foot at the level of the styloid process and the back of the heel. toe nails distrophic and cdiscolored X 10. MSK: Muscle power 5/5 to all groups, Pain on palpating the lateral side of the right ankle. Pain on palpating the periulcerative areas of the right 2nd toe. - Neurological Exam Neurological exam: Alert, Oriented x3 - Psychiatric Exam Psychiatric exam: Normal Affect, Normal Mood Results - Vital Signs Recent Vital Signs: Last Vital Signs Temp 98.3 F 05/13/18 08:35 Pulse 89 05/13/18 08:35 Resp 20 05/13/18 08:35 BP 113/68 05/13/18 08:35 Pulse Ox 98 05/13/18 08:35 - Labs Result Diagrams: 05/13/18 06:00 05/13/18 06:00 Labs: Laboratory Results - last 24 hr 05/12/18 05/12/18 05/12/18 14:35 14:35 16:14 WBC RBC Hgb Hct MCV MCH MCHC RDW Plt Count MPV Neut % (Auto) Lymph % (Auto) [place] % (Auto) Eos % (Auto) Baso % (Auto) Lymph # (Auto) [place] # (Auto) Eos # (Auto) Baso # (Auto) Absolute Neuts (auto) Sodium Potassium Chloride Carbon Dioxide Anion Gap BUN Creatinine Est GFR ( Amer) Est GFR (Non-Af Amer) Random Glucose Calcium Total Bilirubin AST ALT Alkaline Phosphatase Total Protein Albumin Globulin Albumin/Globulin Ratio Triglycerides Cholesterol LDL Cholesterol Direct HDL Cholesterol TSH 3rd Generation Urine Color Light yellow Urine Appearance Clear Urine pH 6.5 Ur Specific [place] 1.010 Urine Protein Negative Urine Glucose (UA) Negative Urine Ketones 40 H Urine Blood Negative Urine Nitrate Negative Urine Bilirubin Negative Urine Urobilinogen 0.2 Ur Leukocyte Esterase Negative Urine Opiates Screen Negative Negative Urine Methadone Screen Negative Negative Ur Barbiturates Screen Negative Negative Ur Phencyclidine Scrn Negative Negative Ur Amphetamines Screen Negative Negative U Benzodiazepines Scrn Negative Negative U Oth Cocaine Metabols Negative Negative U Cannabinoids Screen Negative Negative 05/13/18 05/13/18 05/13/18 06:00 06:00 06:00 WBC 5.7 RBC 4.39 Hgb 11.8 L Hct 36.5 MCV 83.1 MCH 26.9 MCHC 32.3 RDW 15.0 H Plt Count 312 MPV 10.1 Neut % (Auto) 59.2 Lymph % (Auto) 34.2 [place] % (Auto) 5.3 Eos % (Auto) 0.9 L Baso % (Auto) 0.4 Lymph # (Auto) 2.0 [place] # (Auto) 0.3 Eos # (Auto) 0.1 Baso # (Auto) 0.02 Absolute Neuts (auto) 3.39 Sodium 138 Potassium 4.3 Chloride 105 Carbon Dioxide 25 Anion Gap 13 BUN 11 Creatinine 0.8 Est GFR ( Amer) > 60 Est GFR (Non-Af Amer) > 60 Random Glucose 89 Calcium 9.8 Total Bilirubin 0.8 AST 25 ALT < 6 L Alkaline Phosphatase 54 Total Protein 7.9 Albumin 4.2 Globulin 3.7 Albumin/Globulin Ratio 1.1 Triglycerides 57 Cholesterol 182 LDL Cholesterol Direct 104 HDL Cholesterol 45 TSH 3rd Generation 1.00 Urine Color Urine Appearance Urine pH Ur Specific [place] Urine Protein Urine Glucose (UA) Urine Ketones Urine Blood Urine Nitrate Urine Bilirubin Urine Urobilinogen Ur Leukocyte Esterase Urine Opiates Screen Urine Methadone Screen Ur Barbiturates Screen Ur Phencyclidine Scrn Ur Amphetamines Screen U Benzodiazepines Scrn U Oth Cocaine Metabols U Cannabinoids Screen Assessment & Plan - Assessment and Plan (Free Text) Assessment: 38 y/o F patient with no PMH seen and evaluated at the bedside for right foot ulcerations and pain. Plan: Patient seen and evaluated Discussed in detail with Dr. Mclaughlin Charts and vitals reviewed; Afebrile, No leukocytosis Right foot 3 views X-ray Ordered. Wound culture collected and sent to the lab. Ordered bactroban to be added to the dressing starting tomorrow. Applied betadine to the right foot inter digital spaces. Right foot ulcers cleaned with saline and dressed with betadine and DSD. Ordered ammonium lactate to be applied topically twice/day. Thank you for the consult. Patient wll continue to follow up the patient while in house. - Date & Time Date: 05/13/18 Time: 10:50 <Vinicius Mclaughlin - Last Filed: 05/13/18 13:10> Meds - Medications Medications: Current Medications Acetaminophen (Tylenol 325mg Tab) 650 mg PO Q6H PRN PRN Reason: Fever >100.4 F Enoxaparin Sodium (Lovenox) 40 mg SC DAILY [facility]; Protocol Last Admin: 05/13/18 10:28 Dose: 40 mg Lactic Acid (Lac-Hydrin 12% Lotion (225 G)) 0 gm EXT BID [facility] Mupirocin (Bactroban Ointment) 1 gm TOP BID [facility] Results - Vital Signs Recent Vital Signs: Last Vital Signs Temp 98.3 F 05/13/18 08:35 Pulse 89 05/13/18 08:35 Resp 20 05/13/18 08:35 BP 113/68 05/13/18 08:35 Pulse Ox 98 05/13/18 08:35 - Labs Result Diagrams: 05/13/18 06:00 05/13/18 06:00 Labs: Laboratory Results - last 24 hr 05/12/18 05/12/18 05/12/18 14:35 14:35 16:14 WBC RBC Hgb Hct MCV MCH MCHC RDW Plt Count MPV Neut % (Auto) Lymph % (Auto) [place] % (Auto) Eos % (Auto) Baso % (Auto) Lymph # (Auto) [place] # (Auto) Eos # (Auto) Baso # (Auto) Absolute Neuts (auto) Sodium Potassium Chloride Carbon Dioxide Anion Gap BUN Creatinine Est GFR ( Amer) Est GFR (Non-Af Amer) Random Glucose Hemoglobin A1c Calcium Total Bilirubin AST ALT Alkaline Phosphatase Total Protein Albumin Globulin Albumin/Globulin Ratio Triglycerides Cholesterol LDL Cholesterol Direct HDL Cholesterol TSH 3rd Generation Urine Color Light yellow Urine Appearance Clear Urine pH 6.5 Ur Specific [place] 1.010 Urine Protein Negative Urine Glucose (UA) Negative Urine Ketones 40 H Urine Blood Negative Urine Nitrate Negative Urine Bilirubin Negative Urine Urobilinogen 0.2 Ur Leukocyte Esterase Negative Urine Opiates Screen Negative Negative Urine Methadone Screen Negative Negative Ur Barbiturates Screen Negative Negative Ur Phencyclidine Scrn Negative Negative Ur Amphetamines Screen Negative Negative U Benzodiazepines Scrn Negative Negative U Oth Cocaine Metabols Negative Negative U Cannabinoids Screen Negative Negative 05/13/18 05/13/18 05/13/18 06:00 06:00 06:00 WBC 5.7 RBC 4.39 Hgb 11.8 L Hct 36.5 MCV 83.1 MCH 26.9 MCHC 32.3 RDW 15.0 H Plt Count 312 MPV 10.1 Neut % (Auto) 59.2 Lymph % (Auto) 34.2 [place] % (Auto) 5.3 Eos % (Auto) 0.9 L Baso % (Auto) 0.4 Lymph # (Auto) 2.0 [place] # (Auto) 0.3 Eos # (Auto) 0.1 Baso # (Auto) 0.02 Absolute Neuts (auto) 3.39 Sodium 138 Potassium 4.3 Chloride 105 Carbon Dioxide 25 Anion Gap 13 BUN 11 Creatinine 0.8 Est GFR ( Amer) > 60 Est GFR (Non-Af Amer) > 60 Random Glucose 89 Hemoglobin A1c 5.6 Calcium 9.8 Total Bilirubin 0.8 AST 25 ALT < 6 L Alkaline Phosphatase 54 Total Protein 7.9 Albumin 4.2 Globulin 3.7 Albumin/Globulin Ratio 1.1 Triglycerides 57 Cholesterol 182 LDL Cholesterol Direct 104 HDL Cholesterol 45 TSH 3rd Generation Urine Color Urine Appearance Urine pH Ur Specific [place] Urine Protein Urine Glucose (UA) Urine Ketones Urine Blood Urine Nitrate Urine Bilirubin Urine Urobilinogen Ur Leukocyte Esterase Urine Opiates Screen Urine Methadone Screen Ur Barbiturates Screen Ur Phencyclidine Scrn Ur Amphetamines Screen U Benzodiazepines Scrn U Oth Cocaine Metabols U Cannabinoids Screen 05/13/18 06:00 WBC RBC Hgb Hct MCV MCH MCHC RDW Plt Count MPV Neut % (Auto) Lymph % (Auto) [place] % (Auto) Eos % (Auto) Baso % (Auto) Lymph # (Auto) [place] # (Auto) Eos # (Auto) Baso # (Auto) Absolute Neuts (auto) Sodium Potassium Chloride Carbon Dioxide Anion Gap BUN Creatinine Est GFR ( Amer) Est GFR (Non-Af Amer) Random Glucose Hemoglobin A1c Calcium Total Bilirubin AST ALT Alkaline Phosphatase Total Protein Albumin Globulin Albumin/Globulin Ratio Triglycerides Cholesterol LDL Cholesterol Direct HDL Cholesterol TSH 3rd Generation 1.00 Urine Color Urine Appearance Urine pH Ur Specific [place] Urine Protein Urine Glucose (UA) Urine Ketones Urine Blood Urine Nitrate Urine Bilirubin Urine Urobilinogen Ur Leukocyte Esterase Urine Opiates Screen Urine Methadone Screen Ur Barbiturates Screen Ur Phencyclidine Scrn Ur Amphetamines Screen U Benzodiazepines Scrn U Oth Cocaine Metabols U Cannabinoids Screen Attending/Attestation - Attestation I have personally seen and examined this patient.: Yes I have fully participated in the care of the patient.: Yes I have reviewed all pertinent clinical information: Yes
--- NOTE | 2018-05-13 12:00 | MRI ---
Date of service: 05/12/2018 PROCEDURE: MRI BRAIN WITH AND WITHOUT CONTRAST HISTORY: Right leg weakness COMPARISON: CT head without contrast from 05/12/2018. TECHNIQUE: Multiplanar, multisequence MR images of the brain were obtained with and without intravenous contrast enhancement. 15 cc Omniscan was injected intravenously. FINDINGS: HEMORRHAGE: None DWI: No evidence of an acute or early subacute infarction. BRAIN PARENCHYMA: There are few scattered T2/FLAIR hyperintense foci in the the supratentorial subcortical white matter. There is no mass, mass effect or abnormal extra-axial fluid collection. There is no territorial infarction. There is a partially empty sella, otherwise the midline sagittal structures are normal. ENHANCEMENT: No abnormal intracranial enhancement. VENTRICLES: The ventricles are normal in size, shape and configuration. CRANIUM: There is normal bone marrow signal pattern. ORBITS: Grossly unremarkable. PARANASAL SINUSES/MASTOIDS: Predominantly clear. VASCULAR SYSTEM: There are normal signal voids in the larger intracranial arteries. OTHER FINDINGS: None . IMPRESSION: No acute intracranial abnormality. Minimal supratentorial white matter changes are strictly nonspecific. The differential considerations include migraine headache effect, gliosis, vasculitis, Lyme disease, premature early chronic microangiopathic changes and demyelinating disease including multiple sclerosis. Clinical follow-up is advised.
--- NOTE | 2018-05-13 12:06 | RAD ---
Date of service: 05/13/2018 PROCEDURE: Right Foot Radiographs. HISTORY: R 2nd toe ulcer COMPARISON: None. FINDINGS: BONES: Normal. No fracture. JOINTS: Normal. SOFT TISSUES: Normal. OTHER FINDINGS: None. IMPRESSION: Normal right foot radiographs.
--- NOTE | 2018-05-13 18:50 | MRI ---
Date of service: 05/13/2018 PROCEDURE: MRI of the thoracic spine dated 05/13/2018 HISTORY: Right leg weakness. COMPARISON: Correlation made with CT scan lumbar spine 05/12/2018 TECHNIQUE: Multiecho multiplanar sequences were performed through the thoracic spine without the use of intravenous contrast. FINDINGS: ALIGNMENT: Normal thoracic spinal alignment. Normal thoracic kyphosis. VERTEBRA: Vertebral body height are preserved. MARROW: Marrow signal unremarkable. PARASPINAL SOFT TISSUES: Unremarkable. CORD: Unremarkable thoracic cord. No volume loss, signal abnormality or syrinx. DISCS: No disc herniation or significant disc bulges are identified in the thoracic or upper lumbar region. No evidence of spinal, spinal canal stenosis, or neuroforaminal narrowing.. Note is made however of a small central and bilateral disc protrusion at the C5-C6 level which does minimally indent the ventral surface of the spinal cord. OTHER FINDINGS: None. IMPRESSION: No evidence of compression fractures no retropulsed fragments... No evidence of significant n disc herniations seen in the thoracic spine.. No evidence of central canal nor foraminal stenosis. No definitive abnormal signal changes seen within the visualized cervical or thoracic spinal cord. There is a small focal central and bilateral disc protrusion at the C5-C6 level which minimally indents the ventral surface of the spinal cord.
[2018-05-13] MEDS: Ammonium Lactate 12% Lotion (225 g) EXT SCH (19:48)
[2018-05-13] MEDS: Mupirocin 2% Ointment 15 GM TUBE TOP SCH (19:48)
[2018-05-14 06:43] LABS: BASO # 0.03 K/mm3 (0.0-2.0); BASO % 0.7 % (0.0-3.0); EOS # 0.1 (0.0-0.7); EOS % 1.5 % (1.5-5.0); HEMOGLOBIN 11.9 g/dL (12.0-16.0); LYMPH # 2.4 (1.2-3.4); LYMPH % 52.8 % (22.0-35.0); MEAN CELL VOLUME 83.2 fl (80.0-105.0); MEAN CORPUSCULAR HEMOGLOBIN 26.7 pg (25.0-35.0); MEAN CORPUSCULAR HGB CONC 32.1 g/dl (31.0-37.0); MEAN PLATELET VOLUME 10.2 fl (7.0-11.0); MONO # 0.3 (0.1-0.6); MONO % 6.1 % (1.0-6.0); RBC 4.46 10^6/uL (3.5-6.1); RED CELL DISTRIBUTION WIDTH 15.2 % (11.5-14.5); WHITE BLOOD COUNT 4.6 10^3/uL (4.5-11.0)
[2018-05-14 06:50] LABS: ALB/GLOB RATIO 1.2 (1.1-1.8); ALBUMIN 4.1 g/dL (3.0-4.8); AST/SGOT 23 U/L (14-36); BLOOD UREA NITROGEN 9 mg/dL (7-21); CALCIUM 9.7 mg/dL (8.4-10.5); GFR NON-AFRICAN AMERICAN > 60
--- NOTE | 2018-05-14 07:17 | CP.PCM.PN ---
Subjective - Date & Time of Evaluation Date of Evaluation: 05/14/18 Time of Evaluation: 07:17 Objective - Vital Signs/Intake and Output Vital Signs (last 24 hours): Temp Pulse Resp BP Pulse Ox 98 F 65 20 103/72 100 05/13/18 22:00 05/14/18 06:00 05/13/18 22:00 05/13/18 22:00 05/13/18 22:00 Intake and Output: 05/14/18 05/14/18 06:59 18:59 Intake Total 840 Balance 840 - Medications Medications: Current Medications Acetaminophen (Tylenol 325mg Tab) 650 mg PO Q6H PRN PRN Reason: Fever >100.4 F Last Admin: 05/13/18 13:27 Dose: 650 mg Enoxaparin Sodium (Lovenox) 40 mg SC DAILY [facility]; Protocol Last Admin: 05/13/18 10:28 Dose: 40 mg Lactic Acid (Lac-Hydrin 12% Lotion (225 G)) 0 gm EXT BID [facility] Last Admin: 05/13/18 19:48 Dose: 1 cre Mupirocin (Bactroban Ointment) 1 gm TOP BID [facility] Last Admin: 05/13/18 19:48 Dose: Not Given - Labs Labs: 05/14/18 06:00 05/14/18 06:00 PT 13.0 SECONDS (9.4-12.5) H 05/12/18 08:00 INR 1.15 05/12/18 08:00 APTT 35.6 Seconds (26.9-38.3) 05/12/18 08:00
[2018-05-14 07:20] LABS: ALT/SGPT < 6 U/L (7-56)
[2018-05-14 09:40] VITALS: BP 95/58; RESP 18; TEMP 98.4; O2SAT 98
[2018-05-14] MEDS: Mupirocin 2% Ointment 15 GM TUBE TOP SCH (10:43)
[2018-05-14] MEDS: Ammonium Lactate 12% Lotion (225 g) EXT SCH (10:43)
[2018-05-14] MEDS: Enoxaparin 40 mg Syringe SC SCH (10:43)
[2018-05-14 13:53] VITALS: PULSE 69
--- NOTE | 2018-05-14 14:01 | CP.PCM.PN ---
Subjective - Date & Time of Evaluation Date of Evaluation: 05/14/18 Time of Evaluation: 13:58 - Subjective Subjective: Podiatry consult note for Dr. Boo: 38 year old female patient seen and evaluated at the bedside for right foot ulcerations and pain. Patient states that she feels only mild pain when touching the ulcer site. She further denies any ovenight shortness of breath, chest pain, abdominal pain, nausea, vomiting, diarrhea, or urinary symptoms. She denies any other pedal comlaint at this time. Objective - Vital Signs/Intake and Output Vital Signs (last 24 hours): Temp Pulse Resp BP Pulse Ox 98.4 F 69 18 95/58 L 98 05/14/18 06:00 05/14/18 10:00 05/14/18 06:00 05/14/18 06:00 05/14/18 06:00 Intake and Output: 05/14/18 05/14/18 06:59 18:59 Intake Total 840 Balance 840 - Medications Medications: Current Medications Acetaminophen (Tylenol 325mg Tab) 650 mg PO Q6H PRN PRN Reason: Fever >100.4 F Last Admin: 05/13/18 13:27 Dose: 650 mg Enoxaparin Sodium (Lovenox) 40 mg SC DAILY [facility]; Protocol Last Admin: 05/14/18 10:43 Dose: 40 mg Lactic Acid (Lac-Hydrin 12% Lotion (225 G)) 0 gm EXT BID [facility] Last Admin: 05/14/18 10:43 Dose: 1 cre Mupirocin (Bactroban Ointment) 1 gm TOP BID [facility] Last Admin: 05/14/18 10:43 Dose: 1 applic - Labs Labs: 05/14/18 06:00 05/14/18 06:00 PT 13.0 SECONDS (9.4-12.5) H 05/12/18 08:00 INR 1.15 05/12/18 08:00 APTT 35.6 Seconds (26.9-38.3) 05/12/18 08:00 - Constitutional Appears: Well, Non-toxic, No Acute Distress - Head Exam Head Exam: ATRAUMATIC, NORMOCEPHALIC - Extremities Exam Additional comments: B/L lower extremity focused exam: Vascular: DP/PT 2/4 b/l, Cap refill < 3 seconds to all digits, Temp gradient warm to cool from proximal to distal b/l, no edema appreciated b/l. Neuro: Gross and protective sensation are intact. Derm: 2 small superfcial ulcerations noted on the dorsunm of the right 2nd toe the proximal one is 0.4 cm X 0.3 cm X 0.1 cm. Minimal serous drainage. No malodor, No tracking, undermining or probe to bone. The distal one is 0.6 cm X 0.5 cm X 0.1 cm. No drainage. No malodor, No tracking, undermining or probe to bone . No clinical signs of active bacterial infection. Inter-digital macerations noted in the right 1st, 2nd and 3rd interspaces. hyperkeratotic lesions and skin breakage noted in the lateral side of the foot at the level of the styloid process and the back of the heel. toe nails distrophic and cdiscolored X 10. MSK: Muscle power 5/5 to all groups, Pain on palpating the lateral side of the right ankle. Pain on palpating the periulcerative areas of the right 2nd toe. - Neurological Exam Neurological Exam: Alert, Awake, Oriented x3 - Psychiatric Exam Psychiatric exam: Normal Affect, Normal Mood Assessment and Plan - Assessment and Plan (Free Text) Assessment: 38 y/o F patient seen and evaluated at the bedside for right foot ulcerations and pain. Plan: Patient seen and evaluated Discussed in detail with Dr. Boo Charts and vitals reviewed; Afebrile, No leukocytosis Right foot 3 views X-ray: Normal radiograph. Wound culture: Gram positive cocci. Right foot ulcers dressed with bactroban and DSD. Ordered ammonium lactate to be applied topically twice/day. Ordered lotraisone cream o be applied topically twice/day. Ordered surgical shoe to the right foot. Patient to ambulate in the surgical shoe. Thank you for the consult. Patient will continue to follow up the patient while in house.
--- NOTE | 2018-05-14 17:45 | CP.PCM.DIS ---
Provider - Provider Date of Admission: 05/12/18 11:27 Attending physician: Papo Aguilar MD Consults: 05/12/18 16:12 Nursing Referral for Wound Care Routine Comment: right foot 4th toe Physician Instructions: Reason For Exam: assess 05/12/18 16:52 Neurology Consult Routine Comment: Consulting Provider: Warren Herrmann Consulting Physician: Warren Herrmann Reason for Consult: Right leg weakness 05/12/18 16:53 Podiatry Consult Routine Comment: Consulting Provider: Vinicius Mclaughlin Consulting Physician: Vinicius Mclaughlin Reason for Consult: Ulcer on right foot 05/12/18 16:54 Documentation Billing Clerk [Case Management Referral] Routine Comment: Physician Instructions: Reason For Exam: Patient is homeless with 2 children Reason for Referral: Discharge Planning Time Spent in preparation of Discharge (in minutes): 45 Diagnosis - Discharge Diagnosis (1) Right leg weakness Status: Resolved (2) Toe ulcer Status: Resolved (3) Homeless Status: Chronic Hospital Course - Lab Results Lab Results: Micro Results 05/13/18 11:00 Foot - Right Wound Culture - Preliminary Gram Positive Cocci Most Recent Lab Values WBC 4.6 10^3/uL (4.5-11.0) 05/14/18 06:00 RBC 4.46 10^6/uL (3.5-6.1) 05/14/18 06:00 Hgb 11.9 g/dL (12.0-16.0) L 05/14/18 06:00 Hct 37.1 % (36.0-48.0) 05/14/18 06:00 MCV 83.2 fl (80.0-105.0) 05/14/18 06:00 MCH 26.7 pg (25.0-35.0) 05/14/18 06:00 MCHC 32.1 g/dl (31.0-37.0) 05/14/18 06:00 RDW 15.2 % (11.5-14.5) H 05/14/18 06:00 Plt Count 325 10^3/uL (120.0-450.0) 05/14/18 06:00 MPV 10.2 fl (7.0-11.0) 05/14/18 06:00 Neut % (Auto) 38.9 % (50.0-68.0) L 05/14/18 06:00 Lymph % (Auto) 52.8 % (22.0-35.0) H 05/14/18 06:00 [place] % (Auto) 6.1 % (1.0-6.0) H 05/14/18 06:00 Eos % (Auto) 1.5 % (1.5-5.0) 05/14/18 06:00 Baso % (Auto) 0.7 % (0.0-3.0) 05/14/18 06:00 Lymph # (Auto) 2.4 (1.2-3.4) 05/14/18 06:00 [place] # (Auto) 0.3 (0.1-0.6) 05/14/18 06:00 Eos # (Auto) 0.1 (0.0-0.7) 05/14/18 06:00 Baso # (Auto) 0.03 K/mm3 (0.0-2.0) 05/14/18 06:00 Absolute Neuts (auto) 1.78 (1.4-6.5) 05/14/18 06:00 PT 13.0 SECONDS (9.4-12.5) H 05/12/18 08:00 INR 1.15 05/12/18 08:00 APTT 35.6 Seconds (26.9-38.3) 05/12/18 08:00 Sodium 139 mmol/L (132-148) 05/14/18 06:00 Potassium 4.2 mmol/L (3.6-5.0) 05/14/18 06:00 Chloride 105 mmol/L (98-107) 05/14/18 06:00 Carbon Dioxide 27 mmol/L (21-33) 05/14/18 06:00 Anion Gap 12 (10-20) 05/14/18 06:00 BUN 9 mg/dL (7-21) 05/14/18 06:00 Creatinine 0.8 mg/dl (0.7-1.2) 05/14/18 06:00 Est GFR ( Amer) > 60 05/14/18 06:00 Est GFR (Non-Af Amer) > 60 05/14/18 06:00 Random Glucose 93 mg/dL (70-110) 05/14/18 06:00 Hemoglobin A1c 5.6 % (4.2-6.5) 05/13/18 06:00 Calcium 9.7 mg/dL (8.4-10.5) 05/14/18 06:00 Total Bilirubin 0.5 mg/dL (0.2-1.3) 05/14/18 06:00 AST 23 U/L (14-36) 05/14/18 06:00 ALT < 6 U/L (7-56) L 05/14/18 06:00 Alkaline Phosphatase 58 U/L (38-126) 05/14/18 06:00 Total Creatine Kinase 304 U/L (35-230) H 05/12/18 09:30 CK-MB (CK-2) 0.8 ng/mL (0.0-3.6) 05/12/18 09:30 CK-MB (CK-2) % Cancelled 05/12/18 09:30 Total Protein 7.7 g/dL (5.8-8.3) 05/14/18 06:00 Albumin 4.1 g/dL (3.0-4.8) 05/14/18 06:00 Globulin 3.5 gm/dL 05/14/18 06:00 Albumin/Globulin Ratio 1.2 (1.1-1.8) 05/14/18 06:00 Triglycerides 57 mg/dL (35-160) 05/13/18 06:00 Cholesterol 182 mg/dL (130-200) 05/13/18 06:00 LDL Cholesterol Direct 104 mg/dL (0-129) 05/13/18 06:00 HDL Cholesterol 45 mg/dL (29-60) 05/13/18 06:00 TSH 3rd Generation 1.00 mIU/mL (0.46-4.68) 05/13/18 06:00 Urine Color Light yellow (YELLOW) 05/12/18 14:35 Urine Appearance Clear (CLEAR) 05/12/18 14:35 Urine pH 6.5 (4.7-8.0) 05/12/18 14:35 Ur Specific [place] 1.010 (1.005-1.035) 05/12/18 14:35 Urine Protein Negative mg/dL (<30 mg/dL) 05/12/18 14:35 Urine Glucose (UA) Negative mg/dL (NEGATIVE) 05/12/18 14:35 Urine Ketones 40 mg/dL (NEGATIVE) H 05/12/18 14:35 Urine Blood Negative (NEGATIVE) 05/12/18 14:35 Urine Nitrate Negative (NEGATIVE) 05/12/18 14:35 Urine Bilirubin Negative (NEGATIVE) 05/12/18 14:35 Urine Urobilinogen 0.2 E.U./dL (<1 E.U./dL) 05/12/18 14:35 Ur Leukocyte Esterase Negative Lei/uL (NEGATIVE) 05/12/18 14:35 Urine Opiates Screen Negative (NEGATIVE) 05/12/18 16:14 Urine Methadone Screen Negative (NEGATIVE) 05/12/18 16:14 Ur Barbiturates Screen Negative (NEGATIVE) 05/12/18 16:14 Ur Phencyclidine Scrn Negative (NEGATIVE) 05/12/18 16:14 Ur Amphetamines Screen Negative (NEGATIVE) 05/12/18 16:14 U Benzodiazepines Scrn Negative (NEGATIVE) 05/12/18 16:14 U Oth Cocaine Metabols Negative (NEGATIVE) 05/12/18 16:14 U Cannabinoids Screen Negative (NEGATIVE) 05/12/18 16:14 - Hospital Course Hospital Course: Patient is a 38 year old homeless female from [facility] with no past medical history presenting with right leg weakness that started one day ago. She states that she was standing on the street when suddenly her right leg started to feel weak. She called the ambulance and was brought to the ED. She also admits to having thigh pain that is localized to her lateral right thigh. She describes the pain as burning and 8/10 in severity. Patient also has a ulcer on the right third toe. Over the course of her hospital stay, she had a Head CT, Lumbar spine CT, Brain MRI, Foot Xray, Thoracic spine MRI which all showed no acute findings. Neurology, Dr. Herrmann was consulted and ordered imaging which were all negative. Podiatry was consulted to treat her right toe ulcer. Social work consulted to provide her with resources for her homelessness. Patient had daily dressing changes for her ulcer and was instructed to follow up with podiatry clinic after discharge. Patient was educated on how to change her dressings. Patient is medically optimized for discharge. Discharge Exam - Head Exam Head Exam: ATRAUMATIC, NORMOCEPHALIC - Additional Findings Additional findings: - Constitutional Appears: Well, Non-toxic, No Acute Distress - Head Exam Head Exam: ATRAUMATIC, NORMAL INSPECTION - Eye Exam Eye Exam: EOMI, Normal appearance Pupil Exam: NORMAL ACCOMODATION, PERRL - ENT Exam ENT Exam: Mucous Membranes Moist - Neck Exam Neck exam: Positive for: Normal Inspection - Respiratory Exam Respiratory Exam: Clear to Auscultation Bilateral. absent: Rales, Rhonchi, Wheezes, Respiratory Distress - Cardiovascular Exam Cardiovascular Exam: REGULAR RHYTHM, +S1, +S2. absent: Gallop, Rubs, Systolic Murmur - GI/Abdominal Exam GI & Abdominal Exam: Normal Bowel Sounds, Soft. absent: Tenderness - Extremities Exam Extremities exam: Negative for: calf tenderness, pedal edema Additional comments: There is an ulcer on the right 3rd toe. No signs of infection or foul odor noted. Dressing C/D/I. - Back Exam Back exam: absent: CVA tenderness (L), CVA tenderness (R) - Neurological Exam Neurological exam: Alert, CN II-XII Intact, Oriented x3 Additional comments: Sensations are intact on all extremities. No drift noted on bilateral lower extremities. - Expanded Neurological Exam Expanded Neuro motor strength exam: Left Upper Extremity: 5, Right Upper Extremity: 5, Left Lower Extremity: 5, Right Lower Extremity: 5 - Psychiatric Exam Psychiatric exam: Normal Affect, Normal Mood Discharge Plan - Discharge Medications Prescriptions: Ammonium Lactate 12% [Lac-Hydrin 12% Lotion (225 g)] 0 gm EXT BID #1 bottle Aspirin [Aspirin Chewable] 81 mg PO DAILY #30 ctb - Follow Up Plan Condition: STABLE Disposition: HOME/ ROUTINE Instructions: Radiculopathy (DC) Additional Instructions: 1. Start taking Aspirin 81mg daily 2. Daily dressing changes for your toe ulcer as taught to you by the nurse. 3. Follow up with podiatry, Dr. Mclaughlin in 05/20/18 at 10:30 am . [phone]. [facility]. 3rd floor, [facility]. 4. Return to the emergency room for worsening or newly concerning symptoms. Referrals: Vinicius Mclaughlin DPM [Staff Provider] - Susan Wayne MD [Medical Doctor] -
[2018-05-14] MEDS ORDERED: Clotrimazole/Betamethasone Lotion(30 ml) TOP SCH (18:00)
== END 2018-05-14 17:07 | disposition home or self-care (01) ==
LOC: ED 06:38 → ERH 11:27 → 3RNO 14:50
PROVIDERS: ADMIT Hospitalist; ATTEND Hospitalist
DX: R53.1 Weakness (principal); L97.519 Non-pressure chronic ulcer of other part of right foot with unspecified severity; M54.16 Radiculopathy, lumbar region; I73.9 Peripheral vascular disease, unspecified; Q76.49 Other congenital malformations of spine, not associated with scoliosis; Z59.0 Homelessness
CPT/HCPCS: 36415; 70450; 70553; 72131; 72146; 73630; 80053; 80061; 81003; 81025; 82550; 82553; 83036; 84443; 85025; 85610; 85730; 87070; 93005; 99284; A9579; G0378; G0480; J1650